=== PATIENT | male | born 1960 | race Caucasian/White ===

== ENCOUNTER 2019-01-22 18:33 | Emergency (ER) | payer OTHER ==
[~2019-01-22] VITALS: Ht 170.2 cm; Wt 67.7 kg
[2019-01-22] MEDS ORDERED: TEMA7.5C2 PO (19:20)
[2019-01-22] MEDS ORDERED: AMPH20TA3 PO (19:20)
[2019-01-22 19:41] VITALS: BP 120/78
== END 2019-01-22 19:44 | disposition home or self-care (01) ==
LOC: ER 18:34
DX: S70.11XA Contusion of right thigh, initial encounter (principal); Z79.899 Other long term (current) drug therapy; X58.XXXA Exposure to other specified factors, initial encounter; Y93.39 Activity, other involving climbing, rappelling and jumping off; Y92.89 Other specified places as the place of occurrence of the external cause; Y99.8 Other external cause status
CPT/HCPCS: 29505; 73552; 73564; 99283; 99284